=== PATIENT | female | born 1955 | race Caucasian/White ===

== ENCOUNTER 2024-08-16 10:52 | Emergency (ER) | payer MEDICARE, OTHER, SELFPAY ==
[2024-08-16 11:17] VITALS: BP 208/102
--- NOTE | 2024-08-16 11:19 | ED.GENMED ---
ED Provider Triage
-
Patient seen by provider in Triage?: Seen in Triage
69 yo female w/ hx of lupus (On Plaquenil) presents with SOB, cough and fatigue x 3d. positive for flu A. Pt tested negative for flu at . Febrile on arrival.
No distress, normal resp effort. Markedly hypertensive, otherwise normal VS.
Check labs due to immunosuppression, CXR, repeat flu/COVID
History of Present Illness
General
Chief Complaint: Cold/Flu/URI Symptoms
Time Seen by Provider: 08/16/24 12:29
History of Present Illness
History of Present Illness:
69-year-old female presents to the emergency department for evaluation of flulike symptoms for the past 3 to 4 days. Significant other tested positive for flu A earlier in the week. She reports chest congestion and 'rattling'. No dyspnea.
Continues to have fevers. Was sent from urgent care due to abnormal lung sounds.
Review of Systems
Review of Systems
Allergies reviewed?: Yes
All Other Systems: ROS reviewed and negative except as documented in HPI and ROS
Phy Exam
Physical Exam
Physical Exam:
GEN: Well appearing, NAD, WDWN
HEENT: Oral mucosa moist, no scleral icterus
Cardiac: Regular rate and rhythm, no murmurs
Lung: No respiratory distress, no tachypnea, lungs clear to auscultation bilaterally
MSK: No gross deformity or injuries
Skin: Good color, no pallor or jaundice, no rashes
Neuro: AO x3, moves all extremities freely
Psych: Calm, cooperative
Course
Orders/Labs/Results
Orders:
Orders
08/16/24 11:19
CR Chest - 2 Views Urgent
Comment:
Reason For Exam: cough, fever, SOB
08/16/24 11:39
COVID-19 Antigen Urgent
Source: Nasal Swab
Complete Blood Count/With Diff Urgent
Comprehensive Metabolic Panel Urgent
Influenza A+B Rapid Molecular Urgent
MICHAEL Source: Nasal Swab
Specimen Description:
Abnormal Lab Results
08/16/24
11:39
RBC 3.89 L 10^6/uL
(4.20-5.40)
Hct 35.7 L %
(37.0-47.0)
MCH 33.2 H pg
(27.0-31.0)
Absolute Lymphs (auto) 0.4 L 10^3/uL
(1.2-3.4)
Neutrophils % 84.9 H %
(42.2-75.2)
Lymphocytes % 6.9 L %
(20.5-51.1)
Chloride 97 L mmol/L
(98-107)
Carbon Dioxide 33 H mmol/L
(22-30)
Glucose 130 H mg/dl
(70-99)
AST 37 H U/L
(14-36)
08/16/24 11:39
08/16/24 11:39
Vital Signs
Initial and Last Documented VS:
Initial Vital Signs
Temp Pulse Resp BP Pulse Ox
100.3 F 86 20 208/102 98
08/16/24 11:17 08/16/24 11:17 08/16/24 11:17 08/16/24 11:17 08/16/24 11:17
Last Documented Vital Signs
Temp Pulse Resp BP Pulse Ox
100.3 F 90 20 208/102 95
08/16/24 11:17 08/16/24 12:32 08/16/24 12:32 08/16/24 11:17 08/16/24 12:32
MDM/Problems Addressed
MDM/Problems Addressed:
Patient positive for flu A. Outside the treatment range for antivirals. Labs reassuring. Discussed supportive care
*Critical Care Note
Total Time (30-74mins, 75-104mins- exclusive of procedures): Not Applicable
ED Attending Note
-
Portions of this chart may have been created with voice recognition software.� Occasional wrong word or��sound alike� substitutions may have occurred due to the inherent limitations of voice recognition software.
Discharge Plan
Departure
Patient Disposition: Home (Routine Discharge)
Date of Disposition: 08/16/24
Time of Disposition: 12:29
Patient with high blood pressure during this ER visit?: Yes
Discharge Problem:
Influenza A
Instructions: Flu in adults - ED discharge instructions
Interventions
Interventions:
*Risk Screen - Suicide Last Done: 08/16/24 11:17
*General Assessment Last Done: 08/16/24 11:17
*Neglect/Abuse Screening Last Done: 08/16/24 11:17
*ED COVID-19 Vaccine History Last Done: 08/16/24 12:35
*Nursing Disposition Last Done: 08/16/24 12:50
ED- Pulmonary Assessment Last Done: 08/16/24 12:36
Discharge Date and Time
Print Language: LIBERIAN
[2024-08-16 12:06] LABS: % Basophils 0.3 % (0-2); % Eosinophils 0.2 % (0-6); % Immature Granulocytes 0.5 % (0-0.5); % Lymphocytes 6.9 % (20.5-51.1); % Monocytes 7.2 % (1.7-9.3); % Neutrophils 84.9 % (42.2-75.2); Absolute Lymphocytes 0.4 10^3/uL (1.2-3.4); Absolute Monocytes 0.5 10^3/uL (0.1-0.6); Absolute Neutrophils 5.4 10^3/uL (1.4-6.5); Hematocrit 35.7 % (37.0-47.0); Hemoglobin 12.9 g/dL (12.0-16.0); Mean Corp Hgb Conc. 36.1 g/dL (33.0-37.0); Mean Corpuscular Hgb 33.2 pg (27.0-31.0); Mean Corpuscular Volume 91.8 fL (81.0-99.0); Mean Platelet Volume 8.7 fL (7.4-10.4); Nucleated Red Blood Cells % 0 %; Platelet Count 198 10^3/uL (130-400); Red Blood Cell Count 3.89 10^6/uL (4.20-5.40); Red Cell Dist. Width 12.6 % (11.5-14.5); White Blood Cell Count 6.4 10^3/uL (4.8-10.8)
[2024-08-16 12:19] LABS: COVID-19 Antigen Negative (Negative)
[2024-08-16 12:23] LABS: ALT (SGPT) 31 U/L (0-35); AST (SGOT) 37 U/L (14-36); Albumin 4.5 g/dl (3.5-5.0); Alkaline Phosphatase 87 U/L (38-126); Blood Urea Nitrogen 17 mg/dl (7-17); Carbon Dioxide 33 mmol/L (22-30); Chloride 97 mmol/L (98-107); Glucose 130 mg/dl (70-99); Sodium 137 mmol/L (135-145); Total Bilirubin 0.5 mg/dl (0.2-1.3); Total Protein 6.8 g/dl (6.3-8.2); eGFR > 60.00
== END 2024-08-16 12:50 | disposition home or self-care (01) ==
LOC: EMR 10:52
PROVIDERS: Physician Assistant; EMERGENCY PHYSICIAN Emergency Medicine; FAMILY PHYSICIAN Family Medicine
DX: J10.1 Influenza due to other identified influenza virus with other respiratory manifestations (principal)
CPT/HCPCS: 99284; 71046; 80053; 85025; 87502; 87811